=== PATIENT | male | born 1990 | race African-American/Black ===

== ENCOUNTER 2020-09-18 19:23 | Emergency (ER) | payer BC ==
[2020-09-18] MEDS ORDERED: Clindamycin/D5W 900 mg/50 ml Premix Bag ONE (20:10)
[2020-09-18] MEDS ORDERED: Boostrix 0.5 ML (Tdap) VIAL ONE (20:10)
[2020-09-18] MEDS ORDERED: Ketorolac Tromethamine 30 MG/ML VIAL ONE (20:10)
[2020-09-18] MEDS ORDERED: Lidocaine 1% w/Epinephrine 1:100K 20 ML VIAL ONE (20:13)
== END 2020-09-19 01:15 | disposition home or self-care (01) ==
LOC: ERS 19:23
DX: L02.412 Cutaneous abscess of left axilla (principal); L03.112 Cellulitis of left axilla; F17.200 Nicotine dependence, unspecified, uncomplicated
CPT/HCPCS: 10060; 90471; 90715; 96365; 96375; J1885; J3490

== ENCOUNTER 2023-04-01 02:35 | Emergency (ER) | payer SELFPAY | END 2023-04-01 02:45 | disposition home or self-care (01) | LOC: ERS 02:35 | DX: R06.4 Hyperventilation (principal) | CPT/HCPCS: 99284 ==